=== PATIENT | male | born 1965 | race Caucasian/White ===

== ENCOUNTER 2016-09-27 10:43 | Emergency (ER) | payer OTHER, MEDICAID ==
[2016-09-27] MEDS ORDERED: MORPHINE SULFATE 2 MG/ML DISP.SYRIN IM ONE (11:34)
[2016-09-27] MEDS ORDERED: MORPHINE SULFATE 2 MG/ML DISP.SYRIN ONE (11:38)
--- NOTE | 2016-09-27 11:45 | ERNOTE ---
Upper Extremity HPI - Narrative Date of Service: 09/27/16 - General Extremities Pain Location: shoulder: left Time Seen by Provider: 09/27/16 11:12 Source: patient Exam Limitations: no limitations - Immun/Allergies/Home Medications Immunizations: IMMUNIZATION HX History of Influenza Vaccine Yes Hx Pneumococcal Vaccination No Allergies/Adverse Reactions: Allergies Allergy/AdvReac Type Severity Reaction Status Date / Time No Known Allergies Allergy Verified 09/27/16 11:27 Home Medications: HOME MEDICATIONS Atorvastatin Calcium [Lipitor] 20 mg PO DAILY 09/27/16 [Last Taken Unknown] Celecoxib [Celebrex] 200 mg PO QDIPM 09/27/16 [Last Taken Unknown] Clobetasol Propionate 15 gm TP BID 09/27/16 [Last Taken Unknown] Cyclobenzaprine HCl 10 mg PO TID 09/27/16 [Last Taken Unknown] Docusate Sodium 100 mg PO HS 09/27/16 [Last Taken Unknown] Folic Acid 1 mg PO DAILY 09/27/16 [Last Taken Unknown] Leflunomide [Arava] 20 mg PO DAILY 09/27/16 [Last Taken Unknown] Lisinopril [Zestril] 20 mg PO DAILY 09/27/16 [Last Taken Unknown] Multivitamin [Multivitamins] 1 each PO DAILY 09/27/16 [Last Taken Unknown] Pantoprazole Sodium [Protonix] 40 mg PO DAILY 09/27/16 [Last Taken Unknown] Pramipexole Di-HCl [Pramipexole Dihydrochloride] 0.125 mg PO DAILY 09/27/16 [ Last Taken Unknown] oxyCODONE HCL/ACETAMINOPHEN [Percocet 5 MG/325 MG] 1 tab PO Q4H PRN #20 tab [Last Taken Unknown] traMADol HCL [Ultram] 50 mg PO Q46H PRN 09/27/16 [Last Taken Unknown] traZODone HCL [Trazodone HCl] 50 mg PO HS 09/27/16 [Last Taken Unknown] - History of Present Illness Narrative: Pt. comes in with c/o pain in his L shoulder after he was chad three days ago. Pt. denies any specific injury but states that it was painful when he finished. Pt. states that he takes tramadol for the pain and it did not relieve the pain. Pt. states tath his left arm is so weak that he is unable to lift his arm. Review of Systems - Review of Systems Constitutional: Present: no symptoms reported. Absent: recent illness, fever, chills, weakness, fatigue, malaise EYE: Present: no symptoms reported ENT: Present: no symptoms reported Respiratory: Present: no symptoms reported. Absent: shortness of breath, cough , wheezing Cardiology: Present: no symptoms reported. Absent: chest pain, palpitations, edema Gastrointestinal/Abdominal: Present: no symptoms reported. Absent: nausea, vomiting, diarrhea Genitourinary: Present: no symptoms reported Musculoskeletal: Present: joint pain - L shoulder Neurological: Present: no symptoms reported. Absent: headache, dizziness/light- headedness, numbness, tingling All Other Systems: All systems neg except as marked - Patient's Past Medical History Patient History - Medical: Rheumatoid Arthritis Patient History - Cardiac/Respiratory: Hypertension, Hyperlipidemia Patient History - Cancer: No Hx of Cancer Patient History - Surgical Procedures: Appendectomy Patient History - Other: None - Social History Living Situations: home Psych History: No pertinent hx Alcohol Use: none Drug Use: none - Immunizations Hx Pneumococcal Vaccination: No History of Influenza Vaccine: Yes Physical Exam - Physical Exam General Appearance: Present: wd/wn, alert, no apparent distress Eye Exam: Normal inspection: bilateral, PERRL: bilateral, EOMI: bilateral Neck: Present: normal inspection, nontender. Absent: limited range of motion, lymphadenopathy (R), lymphadenopathy (L) Respiratory: Present: no respiratory distress, normal breath sounds, no accessory muscle use, chest nontender, lungs clear. Absent: rhonchi, stridor, wheezing Cardiovascular/Chest: Present: regular rate, rhythm, no murmur, normal peripheral pulses Gastrointestinal/Abdominal: Present: normal bowel sounds, nontender Back Exam: Present: normal inspection, normal range of motion, no CVA tenderness , no vertebral tenderness Extremity Exam: Present: no edema, decreased range of motion - abduction and rotation, other - "beer can" positive, unable to move against gravity Neurological Exam: Present: alert, oriented, normal mood/affect, no motor/ sensory deficits Skin Exam: Present: normal color, warm/dry. Absent: pallor, skin rash ED Progress - Date and Time Seen: Date and Time: 09/27/16 12:54 as pt. likely has bicep tendon strain or tear will place in shoulder immobilizer and have him follow up with Ortho. - Vital Signs Patient's Vital Signs:: I have reviewed the patient's vital signs. Vital Signs: Vital Signs 09/27/16 10:48 Temperature 35.3 C L Pulse Rate 78 Respiratory 12 Rate Blood Pressure 164/96 O2 Sat by Pulse 95 Oximetry - X-Ray X-Ray #1 X-Ray: shoulder Interpretation: Reviewed by me X-ray Comments: no fracture. AC joint degeneration - Progress/Reassessment Chief Complaint: Shoulder Injury/Pain Progress:: Improved Departure Clinical Impression: Biceps tendonitis on left - Departure Disposition: Home self-care Condition: Good Instructions: Tendinitis and Tenosynovitis-SportsMed Additional Instructions: Please follow up with ortho by calling their office at your earliest conveinience...Please wear shoulder immobilizer until seen by them Referrals: Black Celeste DO [Primary Care Provider] - Himanshu Kennedy MD [Staff Physician] - Prescriptions: oxyCODONE HCL/ACETAMINOPHEN [Percocet 5 MG/325 MG] 1 tab PO Q4H PRN #20 tab PRN Reason: Pain
--- OUTSIDE RECORDS SUMMARY | 2016-09-27 11:58 | XMS REPORT | Continuity of Care Document ---
:1965 Author Organization [facility] [place] [address] Care Team Providers Name Role Phone Black Celeste Primary Care Provider [phone] Source Comments This disclosure is being made pursuant to the [employer] program and maynot contain all information available regarding this patient.[facility] Active Allergies and Adverse Reactions No Known Allergies Current Medications Be aware that medications may not be up to date as of this document. Alwaysverify current medications with the patient. Prescription Sig. Disp. Refills Start Date End Date Status celecoxib (CELEBREX) Take 1 180 capsule 3 07/08/2015 Active 200 MG capsule capsule by mouth 2 (two) times daily. traZODone (DESYREL) Take 1 90 tablet 5 07/08/2015 Active 50 MG tablet tablet by mouth nightly as needed. etanercept (ENBREL Inject 1 mL 12 Syringe 3 07/29/2015 Active SURECLICK) 50 MG/ML into the SOAJ auto-injector skin once a week. Multiple Vitamin Take by Active (MULTI VITAMIN DAILY mouth. PO) cyclobenzaprine Take 1 90 tablet 1 11/12/2015 Active (FLEXERIL) 10 MG tablet by tablet mouth 3 (three) times daily as needed for Muscle spasms. atorvastatin Take 1 90 tablet 4 01/26/2016 Active (LIPITOR) 20 MG tablet by tablet mouth daily. traMADol (ULTRAM) 50 Take 1-2 240 tablet 5 06/02/2016 Active MG tablet tablets by mouth every 4 (four) to 6 (six) hours as needed. pantoprazole TAKE 1 90 tablet 2 06/17/2016 Active (PROTONIX) 40 MG TABLET DAILY tablet lisinopril Take 20 mg Active (PRINIVIL,ZESTRIL) 20 by mouth MG tablet daily. Tofacitinib Citrate Take one 90 tablet 3 09/02/2016 Active 11 MG TB24 tablet daily pramipexole (MIRAPEX) Take 1 90 tablet 3 09/02/2016 Active 0.5 MG tablet tablet by 7 mouth nightly. methotrexate Take 8 96 tablet 3 09/02/2016 Active (METHOTREXATE) 2.5 MG tablets by 7 tablet mouth once a week. folic acid (FOLVITE) Take 1 90 tablet 3 09/02/2016 Active 1 MG tablet tablet by mouth daily. celecoxib (CELEBREX) TAKE 1 180 capsule 2 09/08/2016 Active 200 MG capsule CAPSULE TWICE A DAY traZODone (DESYREL) TAKE 1 90 tablet 3 09/08/2016 Active 50 MG tablet TABLET NIGHTLY NEEDED celecoxib (CELEBREX) TAKE 1 180 capsule 3 07/01/2015 Discontinued 200 MG capsule CAPSULE 7 TWICE DAILY traZODone (DESYREL) TAKE 1 90 tablet 4 09/16/2015 Discontinued 50 MG tablet TABLET 7 NIGHTLY NEEDED leflunomide (ARAVA) Take 1 90 tablet 3 05/14/2016 Discontinued 20 MG tablet tablet by 7 mouth daily. folic acid (FOLVITE) TAKE 1 90 tablet 1 06/17/2016 Discontinued 1 MG tablet TABLET DAILY 7 pramipexole (MIRAPEX) TAKE 1 TO 2 180 tablet 1 06/17/2016 Discontinued 0.125 MG tablet TABLETS 7 NIGHTLY Hospital, Clinic, or Other Ordered Dose Route Frequency Start Date End Date Status Facility Administered Medication methylPREDNISolone acetate 80mg IM Once 09/02/2016 09/02/2016 Ended (DEPO-MEDROL) injection Active Problems Problem Noted Date Seropositive rheumatoid arthritis (HCC) 05/03/2016 Rheumatoid arthritis (HCC) 04/09/2015 Long-term use of immunosuppressant medication 04/09/2015 Lumbar spine pain 04/09/2015 Fatigue 08/07/2014 Peripheral neuropathy ([facility]) 08/07/2014 Rheumatoid arthritis(714.0) 03/06/2014 Overview: Overview: NATHAN SALINAS MD Encounter for long-term (current) use of other medications 03/06/2014 Overview: Overview: NATHAN SALINAS MD Insomnia 09/03/2013 Overview: Overview: NATHAN SALINAS MD History of colonic polyps 03/25/2010 Overview: Overview: Colonoscopy due 01/2023 MARYAN LEO MD Low back pain 07/16/2005 Overview: Overview: MARCY CELESTE, Most Recent Encounters Date Type Specialty Providers Description 09/09/2016 Data Import 09/07/2016 Refill Rheumatology Nathan Salinas, Rheumatoid arthritis (HCC) 09/06/2016 Scanned Document Provider, Not In System 09/02/2016 Office Visit Rheumatology Nathan Salinas, Seropositive rheumatoid MD arthritis (HCC) (Primary Dx); Long-term use of immunosuppressant medication Social History Tobacco Use Types Packs/Day Years Used Date Never Smoker Smokeless Tobacco: Never Used Tobacco Cessation:Counseling Given: No Comments: Alcohol Use Drinks/Week oz/Week Comments No Last Filed Vital Signs Vital Sign Reading Time Taken Blood Pressure 152/92 09/02/2016 2:42 PM CDT Pulse 95 09/02/2016 2:42 PM CDT Temperature - - Respiratory Rate - - Height 1.524 m (5') 04/09/2015 10:58 AM CDT Weight 99.338 kg (219 lb) 09/02/2016 2:42 PM CDT Body Mass Index 42.77 09/02/2016 2:42 PM CDT Oxygen Saturation - - Plan of Care Date Type Specialty Providers Description 11/18/2016 Appointment Rheumatology Nathan Salinas MD [address] [place] [address] [address] [place] [address] [phone] (Fax) Health Maintenance Due Date Last Done Comments Tetanus/Pertussis (1 - Tdap) 1982 Well Adult Visit 2013 Influenza Immunization (#1) 2016 Colonoscopy 01/25/2023 01/25/2013, 08/12/2005 Hepatitis C Screening Completed 05/03/2016 Results from Last 3 Months Not on file
--- OUTSIDE RECORDS SUMMARY | 2016-09-27 11:59 | XMS REPORT | Continuity of Care Document ---
:1965 Author Organization [facility] ([facility]) Address [address] [place] [address] Phone [phone] Care Team Providers Name Role Phone Black Celeste Primary Care Provider [phone] Source Comments This disclosure is being made pursuant to the Care Everywhere program, applicable federal and state laws, and may not contain all informaitonavailable regarding this patient.[facility] ([facility]) Active Allergies and Adverse Reactions No Known Allergies Current Medications Prescription Sig. Disp. Refills Start Date End Date Status etanercept (ENBREL Inject 50 mg Active SURECLICK) 50 mg/mL subcutaneously every injection pen week. methotrexate PO Active atorvastatin 20 mg Take 20 mg by mouth Active tablet every evening. pantoprazole 40 mg EC Take 40 mg by mouth Active tablet daily. hydrOXYzine pamoate Take 25 mg by mouth Active 25 mg capsule every 4 hours as needed for Itching. amoxicillin-clavulana Take 1 tablet by Active te 875-125 mg per mouth 2 times daily. tablet fluocinoLONE 0.01 % Apply topically 2 Active topical solution times daily. pramipexole 0.125 mg Take 0.125 mg by Active tablet mouth 3 times daily. celecoxib 200 mg Take 200 mg by mouth Active capsule 2 times daily. traZODone 50 mg Take 50 mg by mouth Active tablet at bedtime. folic acid 1 mg Take 1 mg by mouth Active tablet daily. triamcinolone Swish and spit 5-10ml 1000 mL 0 12/16/2015 Active acetonide 0.1% in twice daily as sterile water needed. mouthwash clobetasol 0.05 % Apply Twice daily to 30 g 0 12/16/2015 Active ointment the rash as needed Active Problems Not on file Social History Tobacco Use Types Packs/Day Years Used Date Never Smoker Smokeless Tobacco: Never Used Alcohol Use Drinks/Week oz/Week Comments No Plan of Care Health Maintenance Due Date Last Done Comments HCV Screening 1965 Hepatitis B Vaccine (1 of 3 - Primary Series) 1965 Tdap Vaccine 1974 Lipid Disorder Screening 1981 MMR Vaccine 1981 Td Vaccine 1981 Colonoscopy 01/16/2013 Prostate Cancer Screening 2013 Influenza Vaccine: Seasonal (#1) 01/12/2016 Results from Last 3 Months Not on file
[2016-09-27 14:02] VITALS: BP 151/86
== END 2016-09-27 13:31 | disposition home or self-care (01) ==
LOC: ER 10:43
PROC: 2W39XYZ Immobilization of Left Upper Extremity using Other Device (ICD-10-PCS; principal; 2016-09-27)
DX: M75.22 Bicipital tendinitis, left shoulder (principal); I10 Essential (primary) hypertension; E78.5 Hyperlipidemia, unspecified; M06.9 Rheumatoid arthritis, unspecified

== ENCOUNTER 2016-11-04 14:01 | Emergency (ER) | payer OTHER, MEDICAID ==
--- OUTSIDE RECORDS SUMMARY | 2016-11-04 15:39 | XMS REPORT | Continuity of Care Document ---
:1965 Author Organization [facility] ([facility]) Address [address] [place] [address] Phone [phone] Care Team Providers Name Role Phone Black Celeste Primary Care Provider [phone] Source Comments This disclosure is being made pursuant to the Care Everywhere program, applicable federal and state laws, and may not contain all informaitonavailable regarding this patient.[facility] ([facility]) Active Allergies and Adverse Reactions No Known [...]
--- OUTSIDE RECORDS SUMMARY | 2016-11-04 15:39 | XMS REPORT | Continuity of Care Document ---
:1965 Author Organization [facility] [place] [address] Care Team Providers Name Role Phone Black Celeste Primary Care Provider [phone] Source Comments This disclosure is being made pursuant to the [employer] program and maynot contain all information available regarding this patient.[facility] Active Allergies and Adverse Reactions No Known [...] (PRINIVIL,ZESTRIL) 20 by mouth MG tablet daily. pramipexole (MIRAPEX) Take 1 90 tablet 3 [...] Active 50 MG tablet TABLET NIGHTLY NEEDED predniSONE 1 tablet bid 7 tablet 0 10/04/2016 Active (DELTASONE) 20 MG for 2 days, tablet then 1 tablet daily for 2 days, then 1/2 tablet daily for 2 days. Tofacitinib Citrate Take one 90 tablet 3 10/12/2016 Active 11 MG TB24 tablet daily Tofacitinib Citrate Take one 90 tablet 3 09/02/2016 Discontinued 11 MG TB24 tablet daily 7 Active Problems Problem Noted Date Seropositive rheumatoid arthritis (HCC) 05/03/2016 Rheumatoid arthritis (HCC) 04/09/2015 Long-term use of immunosuppressant medication 04/09/2015 Lumbar spine pain 04/09/2015 Fatigue 08/07/2014 Peripheral neuropathy (FORM[facility]) 08/07/2014 Rheumatoid arthritis(714.0) 03/06/2014 Overview: Overview: NATHAN SALINAS MD Encounter for long-term (current) use of other medications 03/06/2014 Overview: Overview: NATHAN SALINAS MD Insomnia 09/03/2013 Overview: Overview: NATHAN SALINAS MD History of colonic polyps 03/25/2010 Overview: Overview: Colonoscopy due 01/2023 MARYAN LEO MD Low back pain 07/16/2005 Overview: Overview: MARCY CELESTE DO Most Recent Encounters Date Type Specialty Providers Description 10/12/2016 Telephone Rheumatology Laurita Kingsley, Medication Refill RN 10/04/2016 Refill Rheumatology Gianna Chanel LPN 09/07/2016 Refill Rheumatology Nathan Salinas MD Rheumatoid arthritis ( HCC) 09/02/2016 Office Visit Rheumatology Nathan Salinas MD Seropositive rheumatoid arthritis (HCC) (Primary Dx); Long-term use of [...] Description 11/18/2016 Appointment Rheumatology Nathan Salinas MD [address] [place] [address] [address] [place] [address] [phone] (Fax) Health Maintenance Due Date Last Done Comments Tetanus/Pertussis (1 - Tdap) 1982 Well Adult Visit 2013 Influenza Immunization (#1) 2016 Colonoscopy 01/25/2023 01/25/2013, 08/12/2005 Hepatitis C Screening Completed 05/03/2016 Results from Last 3 Months Not on file
[2016-11-04 15:58] LABS: Hematocrit 29.6 % (42.0-52.0); Hemoglobin 9.6 gm/dL (13.5-18.0); Mean Cell Volume 96.7 fl (78-100); Mean Corpuscular Hemoglobin 31.4 pg (27-31); Mean Corpuscular Hgb Conc 32.4 g/dl (32-36); Mean Platelet Volume 9.1 fl (6.0-9.5); Platelet Count 449 K/mm3 (150-450); Red Blood Count 3.06 M/mm3 (4.7-6.0); Red Cell Distribution Width 15.2 % (11.5-14.0); White Blood Count 9.3 K/mm3 (4.0-10.5)
[2016-11-04 16:01] LABS: Total Cells Counted 100
[2016-11-04 16:23] LABS: Atypical (Reactive) Lymph 3 % (0-2); Band 1 % (0-2.0); Basophil 3 % (0-1); Eosinophil 3 % (0-3); Lymphocyte 39 % (20-51); Monocyte 1 % (0-9); Neutrophil 50 % (42-75); Neutrophil # 4.7 K/mm3 (1.3-6.0)
[2016-11-04 16:28] LABS: Macrocytosis 1+; Platelet Estimate Normal (NORMAL); RBC Morphology Normal (NORMAL)
[2016-11-04 16:29] LABS: Dohle Bodies 1+; Toxic Granulation 1+
[2016-11-04 16:34] LABS: BUN/Creatinine Ratio 14.5 (9.0-21.6)
[2016-11-04 16:35] LABS: Albumin * 3.1 gm/dl (3.4-5.0); Anion Gap 13.9 mmol/L (6.8-13.8); Bilirubin, Total 0.8 mg/dL (0.0-1.1); Ca. Corrected For Albumin 9.3 mg/dL (8.4-10.2); Calcium * 8.9 mg/dL (7.9-10.9); Carbon Dioxide 25.8 mmol/L (24-32.6); Potassium 5.7 mmol/L (3.4-4.6); TSH * 0.448 uIU/mL (0.358-3.74); Total Protein 7.8 gm/dL (6.2-8.2)
--- NOTE | 2016-11-04 16:50 | ERNOTE ---
Medical Problem HPI - Narrative Date of Service: 11/04/16 - General Chief Complaint: General Assessment Time Seen by Provider: 11/04/16 15:30 Source: patient, RN notes reviewed Exam Limitations: no limitations - Immun/Allergies/Home Medications Immunizations: IMMUNIZATION HX History of Influenza Vaccine Yes Hx Pneumococcal Vaccination No Allergies/Adverse Reactions: Allergies No Known Allergies Allergy (Verified 11/04/16 14:17) Home Medications: HOME MEDICATIONS Atorvastatin Calcium [Lipitor] 20 mg PO DAILY 09/27/16 [Last Taken Unknown] Celecoxib [Celebrex] 200 mg PO QDIPM 09/27/16 [Last Taken Unknown] Docusate Sodium 100 mg PO HS 09/27/16 [Last Taken Unknown] Folic Acid 1 mg PO DAILY 09/27/16 [Last Taken Unknown] Lisinopril [Zestril] 20 mg PO DAILY 09/27/16 [Last Taken Unknown] Multivitamin [Multivitamins] 1 each PO DAILY 09/27/16 [Last Taken Unknown] Pantoprazole Sodium [Protonix] 40 mg PO DAILY 09/27/16 [Last Taken Unknown] traMADol HCL [Ultram] 50 mg PO Q46H PRN 09/27/16 [Last Taken Unknown] traZODone HCL [Trazodone HCl] 50 mg PO HS 09/27/16 [Last Taken Unknown] - History of Present History Narrative: Monos a 51-year-old male ambulatory to the emergency Department for fatigue and decreased activity tolerance that has been worsening over the past month. He also reports episodes of tunnel vision when his symptoms become severe. He denies any cough or chest pain, but reports becoming short of breath with minimal activity. He reports that he does not sleep well at night and that he is under a lot of stress. He recently saw his primary care provider for an exacerbation of his rheumatoid arthritis and was treated with steroids. He states that his symptoms were present before this episode. He is on methotrexate and Xeljanz for his rheumatoid arthritis as well. Since he has not been feeling well and having more pain, he has been taking ibuprofen routinely. He is also on Celebrex, but has been for several years. He also started taking a potassium supplement, thinking this might help him feel better. Review of Systems - Review of Systems Constitutional: Present: fatigue. Absent: fever, chills, weight loss EYE: Present: vision changes. Absent: eye pain ENT: Present: other - frequent nose bleeds. Absent: nose congestion, nasal drainage, sore throat Respiratory: Present: shortness of breath. Absent: cough, orthopnea, wheezing Cardiology: Absent: chest pain, palpitations, syncope, edema Gastrointestinal/Abdominal: Absent: abdominal pain, eating less, drinking less, other - melena Genitourinary: Absent: frequency, dysuria, hematuria Musculoskeletal: Present: muscle pain, neck pain, joint pain. Absent: back pain , joint swelling Skin: Absent: rash, lesions, lumps Neurological: Absent: headache, dizziness/light-headedness, numbness, tingling Endocrine: Present: no symptoms reported Hematologic/Lymphatic: Absent: easy bruising, easy bleeding Psych: Present: no symptoms reported - Patient's Past Medical History Patient History - Medical: Rheumatoid Arthritis Patient History - Cardiac/Respiratory: Hypertension, Hyperlipidemia Patient History - Cancer: No Hx of Cancer Patient History - Surgical Procedures: Appendectomy Patient History - Other: None - Social History Living Situations: spouse Psych History: No pertinent hx Smoking Status: Never smoker Alcohol Use: none Drug Use: none - Immunizations Hx Pneumococcal Vaccination: No History of Influenza Vaccine: Yes Physical Exam - Physical Exam General Appearance: Present: wd/wn, alert, no apparent distress Eye Exam: Normal inspection: bilateral Neck: Present: supple, limited range of motion - muscle pain, tender lateral. Absent: lymphadenopathy (R), lymphadenopathy (L), thyromegaly Respiratory: Present: no respiratory distress, normal breath sounds, no accessory muscle use, lungs clear Cardiovascular/Chest: Present: regular rate, rhythm, no murmur Extremity Exam: Present: normal inspection, normal range of motion, no edema Neurological Exam: Present: alert, oriented, normal mood/affect, no motor/ sensory deficits Skin Exam: Present: warm/dry, pallor Lymphatic Exam: Present: no adenopathy ED Progress - Results and Orders Patient's Lab Results:: I have reviewed the patient's lab results. - Vital Signs Patient's Vital Signs:: I have reviewed the patient's vital signs. Vital Signs: Vital Signs 11/04/16 11/04/16 14:10 15:19 Temperature 36.7 C 36.5 C Pulse Rate 75 77 Respiratory 16 15 Rate Blood Pressure 125/80 110/75 O2 Sat by Pulse 100 100 Oximetry - EKG EKG: NSR EKG read: Reviewed by me - Progress/Reassessment Chief Complaint: General Assessment Progress:: Unchanged Plan - Plan Plan: Hgb has dropped from 10.7 to 9.6 since it was last checked here in December. Patient has no prior history of renal impairment, but is in acute renal insufficiency and is hyperkalemic since his last lab work. Likely d/t NSAID use along with potassium supplementation. Cause of anemia unknown - patient does report recurrent epistaxis for some time but it is more likely related to his immunosupressant medications. Instructed to stop OTC NSAIDS and K+, and to start iron supplementation. Contacted Dr. Celeste with lab results. Patient to f/u with him next week for recheck. Departure - Departure Clinical Impression: Acute renal insufficiency, Acute hyperkalemia Anemia Qualifiers: Anemia type: unspecified type Qualified Code(s): D64.9 - Anemia, unspecified Disposition: Home Follow Up Needed Condition: Stable Instructions: Anemia, Nonspecific Additional Instructions: Stop over the counter NSAIDS - ibuprofen, Motrin, Advil, Aleve, naproxen Continue Celebrex for now Stop potassium supplement Push fluids Start iron supplement - take with vitamin C Call office tomorrow morning to schedule recheck for next week with Dr. Celeste Referrals: Black Celeste DO [Primary Care Provider] -
[2016-11-04 16:54] VITALS: BP 117/95
== END 2016-11-04 17:16 | disposition home or self-care (01) ==
LOC: ER 14:01
DX: N28.9 Disorder of kidney and ureter, unspecified (principal); E87.5 Hyperkalemia; D64.9 Anemia, unspecified; M06.9 Rheumatoid arthritis, unspecified; I10 Essential (primary) hypertension